=== PATIENT | female | born 1995 | race Caucasian/White ===

== ENCOUNTER 2017-05-14 14:52 | Inpatient (IN) | payer OTHER ==
[~2017-05-14] VITALS: Ht 157.5 cm; Wt 70.9 kg
[~2017-05-14 14:52] MED LIST: FER325 PO; METH0.2V IM; OXYC-281 PO; PRENAT PO
[2017-05-14] MEDS ORDERED: CLINDAMYCIN 900 MG/D5W (PMX) 50 ML IV SCH (16:00)
[2017-05-14] MEDS ORDERED: CARBOPROST 250 MCG INJ IM PRN ×2 (16:00→23:30)
[2017-05-14] MEDS ORDERED: OXYTOCIN 30 UNITS/LR 500 ML IV PRN ×2 (16:00→23:30)
[2017-05-14] MEDS ORDERED: LACTATED RINGER'S 1,000 ML IV SCH (16:00)
[2017-05-14] MEDS ORDERED: METHYLERGONOVINE 0.2 MG INJ IM PRN ×2 (16:00→23:30)
[2017-05-14] MEDS ORDERED: OXYTOCIN 30 UNITS/LR 500 ML IV SCH (16:00)
[2017-05-14] MEDS ORDERED: MISOPROSTOL 200 MCG TAB PR PRN ×2 (16:00→23:30)
[2017-05-14 16:01] VITALS: Ht 157.5 cm; Wt 70.9 kg
[2017-05-14 16:29] LABS: BASOPHILS % 0.3 % (0.0-2.0); EOSINOPHILS % 0.5 % (0.0-7.0); HEMATOCRIT 39.1 % (37.0-47.0); HEMOGLOBIN 13.2 g/dl (12.0-16.0); LYMPHOCYTES # 2.1 10^3/ul (0.8-2.9); LYMPHOCYTES % 27.8 % (15.0-51.0); MEAN CORPUSCULAR HEMOGLOBIN 31.1 pg (29.0-33.0); MEAN CORPUSCULAR HGB CONC 33.8 g/dl (32.0-37.0); MEAN CORPUSCULAR VOLUME 92.2 fl (82.0-101.0); MEAN PLATELET VOLUME 12.1 fl (7.4-10.4); MONOCYTE # 0.7 10^3/ul (0.3-0.9); MONOCYTES % 9.4 % (0.0-11.0); NEUTROPHILS % 60.9 % (39.0-77.0); PLATELET COUNT 152 10^3/UL (140-415); RED BLOOD COUNT 4.24 10^6/ul (4.20-5.40); RED CELL DISTRIBUTION WIDTH 13.6 % (11.5-14.5); WHITE BLOOD COUNT 7.5 10^3/ul (4.8-10.8)
[2017-05-14 16:42] LABS: INR 0.91; PROTIME 12.3 Sec (12.2-14.2)
[2017-05-14 16:43] LABS: PARTIAL THROMBOPLASTIN TIME 27.4 Sec (25.0-35.0)
[2017-05-14] MEDS ORDERED: FENTAnyl 50 MCG/ML VIAL ONE (17:59)
[2017-05-14] MEDS ORDERED: morphine SULFATE/PF (10 MG/10 ML) INJ ONE (17:59)
[2017-05-14] MEDS ORDERED: PHENYLephrine (100 MCG/ML) 5ML SYG ONE (18:42)
[2017-05-14] MEDS ORDERED: NALOXONE (0.4 MG/ML) INJ IV PRN (19:00)
[2017-05-14] MEDS ORDERED: ZOLPIDEM 5 MG TAB PO PRN (19:00)
[2017-05-14] MEDS ORDERED: DIPHENHYDRAMINE 50 MG INJ IV PRN (19:00)
[2017-05-14] MEDS ORDERED: HYDROmorphONE 1 MG/ML SYG IV PRN ×2 (19:00)
[2017-05-14] MEDS ORDERED: ONDANSETRON 4 MG INJ IV PRN (19:00)
[2017-05-14] MEDS ORDERED: DEXAMETHASONE 4 MG/ML 1 ML INJ ONE (19:15)
[2017-05-14] MEDS ORDERED: ONDANSETRON 4 MG INJ ONE (19:15)
--- NOTE | 2017-05-14 20:11 | HP ---
Date/Time of Note Date/Time of Note DATE: 05/14/17 TIME: 20:07 OB - History Hx of Present Free Text/Dictation 21-year-old female at 39 weeks admitted for repeat section Last Menstrual Period: Aug 14, 2016 Estimated Due Date: May 21, 2017 : 2 Para: 1 Care: Good Care Ultrasounds: Normal mid trimester US Obstetrical Complications: None Medical Complications: None, Other (Review of section) Past Family/Social History * Past Medical, Surgical, Family and Obstetric Histories reviewed from chart. Blood Type: A+ Rubella: immune RPR/VDRL: Negative GBS Status: Negative HBsAG: Negative OB Admission Exam Physical Exam HEENT: WNL Heart: Rhythm Normal Lungs: Clear, Equal Abdomen: WNL Extremities: Normal Reflexes: Normal Cervical Dilatation: None Effacement: 0% Station: -3 Membranes: Intact Heart Rate: 130's Accelerations: Accelerations Present Decelerations: No Decelerations Varibility: Moderate Contractions on Admission: None Last 72 hours Lab Results CBC & BMP 05/14/17 15:30 OB Assessment/Plan Reason for admission: section Other Assessment: Term gestation Previous Other plan: Repeat the MARIA FERNANDA BENITEZ MD May 14, 2017 20:11
--- NOTE | 2017-05-14 20:13 | OPR ---
Operative Report Planned Procedure Procedure date May 14, 2017 Procedure(s) Repeat section Performed by see signature line Assisting provider: ANTHONY WHARTON MD Anesthesiologist: STANLEY LANE Pre-procedure diagnosis Term gestation Previous section Anesthesia Type: spinal Procedure Description Under satisfactory anaesthesia a Pfannenstiel incision was made two fingerbreadth above and parallel to the symphysis of pubis around the previous scar and previous scar was removed Incision was extended laterally to the border of the Recti muscles on either sides. Incision was carried down with sharp and blunt dissection until fascia was reached. Anterior Recti muscle fascia was incised in mid portion and incision extended laterally to the border of skin incision. Fascia was mobilized from muscle superiorly and Recti muscles were from midline using sharp and blunt dissection. Peritoneum was visualized; Avoiding bowel and bladder it was incised . Incision was extended superiorly and inferiorly. Bladder blade was placed. Posterior peritoneum covering the lower segment of the uterus and lower segment of the uterus were incised.Low transverse uteine incision was made on lower segment of the uterus. Incision extended laterally to the border of Round Lig. on either sides and baby was delivered from OT. position . Amniotic fluid appeared clear. Cord blood was obtained and cord had 3 vessels . Placenta was delivered spontaneously and appeared intact and complete. Intrauterine cavity was rubbed with a laparotomy sponge. Uterine incision was closed in 2 layers using running stitches of No1 Monocryl. Hemostasis appeared secure. Ovaries and Fallopian tubes were within normal limits. Announcing needle, lap sponge and instrument count to be correct abdomen was closed in layers as follows: Peritoneum and Recti muscles with running stitches of 20 Vicryl. Fascia with running stitch of No 1 PDS. Subcutaneous tissue with running stitches of 20 Chromic and skin was closed using Insorb. Patient tolerated the procedure well and was transferred to [facility] in good condition. Post-Procedure Post-procedure diagnosis Status post Findings: Live Baby Estimated blood loss: other (500 mL) Specimen(s): no Grafts/Implants: no Complication(s): no Pt Condition post procedure: stable Disposition: PACU Physician Certification I, the undersigned physician, hereby certify that I have discussed the procedure described in this consent form with this patient (or the patient's legal health and safety representative), including: * The risk and benefits of the procedure; * Any adverse reactions that may reasonably be expected to occur; * Any alternative efficacious methods of treatment which may be medically viable ; * The potential problems that may occur during recuperation; * Potential for blood transfusion and associated risks/benefits; and * Any research or economic interest I may have regarding this treatment. I further certify that the patient/legally responsible person was encouraged to ask question and that all questions were answered. MARIA FERNANDA BENITEZ MD May 14, 2017 20:13
--- NOTE | 2017-05-14 22:16 | DELSUM ---
Delivery Summary A-C Datetime Report Generated by CPN: 05/14/2017 22:16 DELIVERY PERSONNEL Swatch Cutter: Miranda, Sherry MATERNAL INFORMATION Delivery Anesthesia: Spinal Medications in Delivery: See Anesthesia Notes Estimated Blood Loss (ml): 300 Placenta Cultured: No Maternal Complications: None LABOR SUMMARY EDC: 05/21/2017 00:00 No. Babies in Womb: 1 Attempted: No Labor Anesthesia: Intrathecal LABOR INFORMATION Reason for Induction: Not Applicable Oxytocin: N/A Group B Beta Strep: Negative Antibiotics # of Doses: 1 Antibiotics Time of Last Dose: 05/14/2017 18:45 Steroids Given: None Reason Steroids Not Administered: Not Applicable MEMBRANES Membranes Rupture Method: Artificial Rupture of Membranes: 05/14/2017 19:13 Length of Rupture (hr): 0.00 Amniotic Fluid Color: Clear Amniotic Fluid Amount: Small STAGES OF LABOR Stage 3 hr: 0 Stage 3 min: 1 CSECTION DELIVERY Primary Indication: Repeat Elective Secondary Indication: N/A CSection Urgency: Elective CSection Incidence: Repeat Labor: No Labor Elective: Elective CSection Incision: Lower Uterine Transverse BABY A INFORMATION Infant Delivery Date/Time: 05/14/2017 19:13 Method of Delivery: Born in Route : No : N/A Forceps: N/A Vacuum Extraction: N/A Shoulder Dystocia : N/A SHOULDER DYSTOCIA BABY A Delivery Date/Time: 05/14/2017 19:13 PRESENTATION/POSITION BABY A Presentation: Cephalic Cephalic Presentation: Vertex Breech Presentation: N/A PLACENTA INFORMATION BABY A Placenta Delivery Time : 05/14/2017 19:14 Placenta Method of Delivery: Manual Removal Placenta Status: Delivered SCORES BABY A Heart Rate 1 min: >100 bpm Resp Effort 1 min: Good Cry Reflex Irritability 1 min: Cough/Sneeze/Pulls Away Muscle Tone 1 min: Active Motion Color 1 min: Blue/Pale Resuscitation Effort 1 min: Tactile Stimulation; PPV/NCPAP SCORE 1 MIN: 8 Heart Rate 5 min: >100 bpm Resp Effort 5 min: Good Cry Reflex Irritability 5 min: Cough/Sneeze/Pulls Away Muscle Tone 5 min: Active Motion Color 5 min: Body [place], Extremit Blue Resuscitation Effort 5 min: Tactile Stimulation; PPV/NCPAP SCORE 5 MIN: 9 INFANT INFORMATION BABY A Gestational Age at Delivery: 39.0 Gestational Status: Full Term- 39- 40.6 Weeks Infant Outcome : Liveborn Condition : Stable Sex: Female IDENTIFICATION/MEDS BABY A ID Band Number: [id number] ID Band Location: Right Leg; Left Arm Sensor Applied: Yes Sensor Number: [id number] Sensor Location : Cord Clamp Vitamin K Given : Not Given Erythromycin Given: Not Given WEIGHT/LENGTH BABY A Infant Birthweight (gm): 4090 Weight (lb): 9 Weight (oz): 0 Infant Length (in): 20.00 Infant Length (cm): 50.80 CORD INFORMATION BABY A No. Cord Vessels: 3 Nuchal Cord : N/A Cord Blood Taken: Yes Suction: Mouth; Nose ASSESSMENT BABY A Complications: None Physical Findings at Delivery: Within Normal Limits Respirations: Appears Normal Habilitation Training Specialist/ALS Called : No Infant Care By: Brian SWAN/Keyla ONTIVEROS Transferred To: Remains with Mother
[2017-05-14 22:45] VITALS: BP 117/61; PULSE 62; RESP 18
[2017-05-14] MEDS ORDERED: LANOLIN 7 GM TUBE TOP PRN (23:30)
[2017-05-14] MEDS ORDERED: NA PHOSPHATE/BIPHOS 133 ML ENEMA PR PRN (23:30)
[2017-05-15] VITALS: BP 112/67; PULSE 65; RESP 18
[2017-05-15] MEDS: LACTATED RINGER'S 1,000 ML IV SCH ×3 (00:41→15:21)
[2017-05-15] MEDS: CEFAZOLIN 2 GM/50 ML (PMX) 50 ML IV SCH ×3 (02:24→16:35)
[2017-05-15 04:12] VITALS: BP 104/57; PULSE 67; RESP 18
[2017-05-15] MEDS: CLINDAMYCIN 300 MG CAP PO SCH ×5 (05:39→23:40)
[2017-05-15 08:00] VITALS: BP 99/54; PULSE 64; RESP 18
[2017-05-15] MEDS: KETOROLAC 30 MG INJ IV PRN ×2 (08:52→16:35)
[2017-05-15] MEDS: SENNA/DOCUSATE NA (8.6MG/50MG) TAB PO SCH ×2 (08:53→20:48)
[2017-05-15 09:55] LABS: BASOPHILS % 0.1 % (0.0-2.0); EOSINOPHILS % 0.1 % (0.0-7.0); HEMATOCRIT 34.3 % (37.0-47.0); HEMOGLOBIN 11.7 g/dl (12.0-16.0); LYMPHOCYTES # 1.6 10^3/ul (0.8-2.9); LYMPHOCYTES % 14.4 % (15.0-51.0); MEAN CORPUSCULAR HEMOGLOBIN 31.1 pg (29.0-33.0); MEAN CORPUSCULAR HGB CONC 34.1 g/dl (32.0-37.0); MEAN CORPUSCULAR VOLUME 91.2 fl (82.0-101.0); MEAN PLATELET VOLUME 12.1 fl (7.4-10.4); MONOCYTES % 9.5 % (0.0-11.0); NEUTROPHILS % 75.3 % (39.0-77.0); PLATELET COUNT 134 10^3/UL (140-415); RED BLOOD COUNT 3.76 10^6/ul (4.20-5.40); RED CELL DISTRIBUTION WIDTH 13.2 % (11.5-14.5)
[2017-05-15] MEDS ORDERED: BISACODYL 10 MG SUPP PR ONE (11:00)
[2017-05-15 12:00] VITALS: BP 97/52; PULSE 73; RESP 18
[2017-05-15 16:26] VITALS: BP 113/63; PULSE 74; RESP 18
[2017-05-15 20:00] VITALS: BP 99/55; PULSE 77; RESP 18
--- NOTE | 2017-05-15 20:01 | PN ---
Date/Time of Note Date/Time of Note DATE: 05/15/17 TIME: 19:59 Assessment/Plan VTE Prophylaxis VTE Prophylaxis Intervention: ambulation Lines/Catheters IV Catheter Type (from Nrsg): Peripheral IV Assessment/Plan Assessment/Plan Status post Stop day 1 We will advance diet, ambulate, and monitor vital signs Subjective 24 Hr Interval Summary No bowel movement Passing flatus Constitutional: BM, ambulates, flatus, improved, no complaints, urine output Pain Control: well controlled Exam/Review of Systems Vital Signs Vitals Vital Signs Date Time Temp Pulse Resp B/P Pulse Ox O2 Delivery O2 Flow Rate FiO2 05/15/17 16:26 98.1 74 18 113/63 Room Air 05/15/17 15:10 98 21 Intake and Output 05/14/17 05/14/17 05/15/17 15:00 23:00 07:00 Intake Total 1250 ml 875 ml Output Total 1715 ml 750 ml Balance -465 ml 125 ml Exam Free Text/Dictation Abdomen soft bowel sounds present Incision is covered Constitutional: alert, oriented, well developed Psych: nl mood/affect, no complaints Head: atraumatic, normocephalic Eyes: EOMI, nl conjunctiva, nl lids, nl sclera ENMT: mucosa pink and moist, nl external ears & nose, nl lips & teeth, nl nasal mucosa & septum Neck: non-tender, supple Respiratory: clear to auscultation, normal air movement Cardiovascular: nl pulses, regular rate and rhythm Gastrointestinal: nl liver, spleen, non-tender, soft Musculoskeletal: nl extremities to inspection, nl gait and stance Extremities: normal pulses Neurological: LOG TURNER II-XII intact, nl mental status, nl speech, nl strength Skin: nl turgor, rash or lesions Lymph: nl lymph nodes Results Result Diagram: 05/15/17 0919 MARIA FERNANDA BENITEZ MD May 15, 2017 20:01
[2017-05-15] MEDS: HYDROCODONE/APAP (5/325) TAB PO PRN (21:00)
[2017-05-15] MEDS: IBUPROFEN 800 MG TAB PO SCH (21:50)
[2017-05-15] MEDS: OXYCODONE/ACETAMINOPHEN (5/325) TAB PO PRN (23:40)
[2017-05-16 04:00] VITALS: BP 101/64; PULSE 68; RESP 18
[2017-05-16] MEDS: IBUPROFEN 800 MG TAB PO SCH ×3 (05:36→23:44)
[2017-05-16] MEDS: CLINDAMYCIN 300 MG CAP PO SCH ×4 (05:37→23:45)
[2017-05-16 08:00] VITALS: BP 103/61; PULSE 72; RESP 18
[2017-05-16] MEDS: SENNA/DOCUSATE NA (8.6MG/50MG) TAB PO SCH ×2 (09:07→20:16)
[2017-05-16] MEDS: HYDROCODONE/APAP (5/325) TAB PO PRN ×3 (09:08→20:16)
[2017-05-16 16:00] VITALS: BP 105/57; PULSE 78; RESP 18
--- NOTE | 2017-05-16 17:17 | DS ---
Date/Time of Note Date/Time of Note Home next day DATE: 05/16/17 TIME: 17:16 Obstetrical Discharge Record Final Diagnosis Final Diagnosis: Term delivered Other Final Diagnosis Status post repeat delivery Section Section: Repeat Condition on Discharge Physical Assessment Last Vitals: See nurse's notes Voiding: Yes Bowel Movement: Yes Breast: Soft, non-tender, Filling Fundus: Firm Abdomen and Incision: Soft bowel sounds present, not distended Incision is without induration or erythema, healing well Episiotomy: Not applicable Calf Tenderness: No Patient Condition: Good MARIA FERNANDA BENITEZ MD May 16, 2017 17:17
--- NOTE | 2017-05-16 17:18 | DS ---
Date/Time of Note Date/Time of Note Home next day DATE: 05/16/17 TIME: 17:17 Discharge Summary Admission/Discharge Info Admit Date/Time May 14, 2017 at 14:52 Discharge Date/Time May 17, 2017 Discharge Diagnosis Status post repeat section Patient Condition: Good Procedures delivery Hx of Present Illness 21-year-old female underwent repeat Hospital Course Uncomplicated Home Meds Active Scripts Methylergonovine Maleate* (Methergine*) 0.2 Mg/Ml Soln, 0.2 MG IM Q6H, #8 VIAL Prov:CAROLYN ISRAEL 10/15/15 Reported Medications Oxycodone Hcl-Acetaminophen* (Percocet*) 5-325 Mg Tablet, 1 TAB PO Q4H Y for PAIN LEVEL 6-10, TAB 10/15/15 Ferrous Sulfate* (Ferrous Sulfate*) 325 Mg Tabec, 325 MG PO DAILY, TAB 10/15/15 Multivit/Min/Fol Ac/Iron/Pren* ( S*) 1 Tab Tab, 1 TAB PO DAILY, TAB 10/05/15 Follow-up Plan 1 week in clinic for incision Primary Care Provider Giovanni High MD Time spent on discharge: > 30 minutes MARIA FERNANDA BENITEZ MD May 16, 2017 17:18
--- NOTE | 2017-05-16 17:19 | PD.PPDC ---
FIRE ASSISTANT Discharge Instruction Provider Information Physician Information 21-year-old female had repeat section Diagnosis Final Diagnosis: Status post repeat section Condition Patient Condition: Good Diet Diet: Resume Regular Diet Activity/Restrictions Activity: May Shower Restrictions: No Exercising No Lifting Nothing in the Vagina Return to Work or School: Jul 22, 2017 Wound/Drain Care Instructions Wound/Drain Care Instructions: Keep clean and dry Follow-up Follow-up with Physician: 1, Week/Weeks (In clinic for follow-up) Return to clinic for PERFORATOR LOADER Instructions: Fever greater than 101 Chills OB Instructions: Breast Tenderness Depression Surgical Instructions: Incisional Drainage Incisional Redness Comment: Pelvic rest no heart activity for 2 months MARIA FERNANDA BENITEZ MD May 16, 2017 17:19
[2017-05-16] MEDS ORDERED: IBUP800T25 PO (17:20)
[2017-05-16 20:16] VITALS: BP 101/72; PULSE 81; RESP 18
[2017-05-17 04:02] VITALS: BP 107/57; PULSE 69; RESP 18
[2017-05-17] MEDS: CLINDAMYCIN 300 MG CAP PO SCH ×2 (05:43→11:44)
[2017-05-17] MEDS: IBUPROFEN 800 MG TAB PO SCH (05:43)
[2017-05-17 07:30] VITALS: BP 113/57; PULSE 68; RESP 19
[2017-05-17] MEDS ORDERED: MEASLES,MUMPS,RUBELLA VACCINE INJ SC* ONE (09:00)
[2017-05-17] MEDS ORDERED: DIPHTH/TET/ACEL PERTUSS (ADULT) 0.5 ML VIAL IM* ONE (09:00)
[2017-05-17] MEDS: OXYCODONE/ACETAMINOPHEN (5/325) TAB PO PRN (09:52)
[2017-05-17] MEDS: SENNA/DOCUSATE NA (8.6MG/50MG) TAB PO SCH (09:52)
== END 2017-05-17 12:30 | disposition home or self-care (01) | DRG 766 ==
LOC: L-D 14:52 → PP1 22:53
PROVIDERS: ADMIT Obstetrics & Gynecology; ATTEND Obstetrics & Gynecology
PROC: 3E033VJ Introduction of Other Hormone into Peripheral Vein, Percutaneous Approach (ICD-10-PCS; 2017-05-14)
PROC: 10D00Z1 Extraction of Products of Conception, Low, Open Approach (ICD-10-PCS; principal; 2017-05-14 17:00)
DX: O34.211 Maternal care for low transverse scar from previous cesarean delivery (principal); Z37.0 Single live birth; Z3A.39 39 weeks gestation of pregnancy
CPT/HCPCS: 85025; 85610; 85730; 86592; 86850; 86900; 86901; 87340; 90715; 94760; 99464; J0690; J1100; J1885; J2274; J2370; J2405; J2590; J3010; J7120